=== PATIENT | male | born 1980 | race African-American/Black ===

== ENCOUNTER 2018-01-07 03:27 | Emergency (ER) | payer MEDICARE, MEDICAID ==
[2018-01-07] MEDS ORDERED: ACETAMINOPHEN 325 MG TABLET PO ONE (05:17)
[2018-01-07] MEDS ORDERED: DICYCLOMINE HCL 20 MG TABLET PO ONE (05:17)
[2018-01-07] MEDS ORDERED: ALBUTEROL SULFATE HFA (90 MCG/PUFF) 8 GM MDI (1 MDI/ER DISP) IH ONE (05:18)
[2018-01-07 05:23] LABS: APPEARANCE,URINE SLIGHTLY-CLOUDY; BILIRUBIN,URINE NEGATIVE (NEGATIVE); CALCIUM OXALATE CRYSTALS,URINE RARE /HPF; COLOR,URINE AMBER; GLUCOSE, URINE NEGATIVE (NEGATIVE); KETONES,URINE TRACE mg/dL (NEGATIVE); LEUKOCYTE ESTERASE,URINE NEGATIVE (NEGATIVE); NITRITE,URINE NEGATIVE (NEGATIVE); PROTEIN,URINE 30 mg/dL (NEGATIVE); URINE SPECIFIC GRAVITY 1.029
--- NOTE | 2018-01-07 05:30 | ER Document Report ---
ED General - General Mode of Arrival: Ambulatory Information source: Patient TRAVEL OUTSIDE OF THE [place] IN LAST 30 DAYS: No <STAR WILLIAM - Last Filed: 01/07/18 05:19> <SOUMYA CUELLAR - Last Filed: 01/07/18 06:00> - General Chief Complaint: Abdominal Pain Stated Complaint: ABDOMINAL PAIN Time Seen by Provider: 01/07/18 03:54 Notes: Patient is a 37 year old male that presents to the emergency department today with complaints of "back pain and abdominal pain off and on". Patient states he has also had a slight cough for the last month. Patient mentions that he is hungry. Patient denies dysuria. (STAR WILLIAM) - Related Data Allergies/Adverse Reactions: aripiprazole [From Abilify] Allergy (Verified 08/24/11 22:38) divalproex sodium [From Depakote] Allergy (Verified 08/24/11 22:38) haloperidol [From Haldol] Allergy (Verified 08/24/11 22:38) haloperidol lactate [From Haldol] Allergy (Verified 08/24/11 22:38) lithium [[place]] Allergy (Verified 08/24/11 22:38) olanzapine [From Zyprexa] Allergy (Verified 08/24/11 22:38) risperidone [From Risperdal] Allergy (Verified 08/24/11 22:38) Past Medical History - General Information source: Patient - Social History Smoking Status: Current Every Day Smoker Cigarette use (# per day): Yes Frequency of alcohol use: Occasional Drug Abuse: Cocaine, Marijuana Lives with: Family Family History: Reviewed & Not Pertinent Patient has suicidal ideation: No Patient has homicidal ideation: No Pulmonary Medical History: Reports: Hx Asthma Renal/ Medical History: Denies: Hx Peritoneal Dialysis Surgical Hx: Negative - Immunizations Hx Diphtheria, Pertussis, Tetanus Vaccination: No <STAR WILLIAM - Last Filed: 01/07/18 05:19> Review of Systems - Review of Systems Constitutional: No symptoms reported EENT: No symptoms reported Cardiovascular: No symptoms reported Respiratory: See HPI, Cough Gastrointestinal: See HPI, Abdominal pain Genitourinary: denies: Dysuria Male Genitourinary: No symptoms reported Musculoskeletal: See HPI, Back pain Skin: No symptoms reported Hematologic/Lymphatic: No symptoms reported Neurological/Psychological: No symptoms reported -: Yes All other systems reviewed and negative <STAR WILLIAM - Last Filed: 01/07/18 05:19> Physical Exam - Vital signs Interpretation: Normal - General General appearance: Appears well, Alert - HEENT Head: Normocephalic, Atraumatic Eyes: Normal Pupils: PERRL - Respiratory Respiratory status: No respiratory distress Chest status: Nontender Breath sounds: Nonproductive cough, Wheezing - Expiratory wheeze with cough only Chest palpation: Normal - Cardiovascular Rhythm: Regular Heart sounds: Normal auscultation Murmur: No - Abdominal Inspection: Normal Distension: No distension Bowel sounds: Normal Tenderness: Nontender Organomegaly: No organomegaly - Back Back: Normal, Nontender - Extremities General upper extremity: Normal inspection, Nontender, Normal color, Normal ROM , Normal temperature General lower extremity: Normal inspection, Nontender, Normal color, Normal ROM , Normal temperature, Normal weight bearing. No: Linsey's sign - Neurological Neuro grossly intact: Yes Cognition: Normal Orientation: AAOx4 [place] Coma Scale Eye Opening: Spontaneous [place] Coma Scale Verbal: Oriented [place] Coma Scale Motor: Obeys Commands [place] Coma Scale Total: 15 Speech: Normal Motor strength normal: LUE, RUE, LLE, RLE Sensory: Normal - Psychological Associated symptoms: Normal affect, Normal mood - Skin Skin Temperature: Warm Skin Moisture: Dry Skin Color: Normal <SOUMYA CUELLAR - Last Filed: 01/07/18 06:00> - Vital signs Vitals: Temp Pulse Resp BP Pulse Ox 98.5 F 85 20 121/79 96 01/07/18 03:34 01/07/18 03:34 01/07/18 03:34 01/07/18 03:34 01/07/18 03:34 Course <STAR WILLIAM - Last Filed: 01/07/18 05:19> <SOUMYA CUELLAR - Last Filed: 01/07/18 06:00> - Re-evaluation Re-evalutation: 01/07/18 05:39 Patient is a 37-year-old male who recently moved to the area. He does not have a doctor. He has a history of asthma and has been coughing but does not have an inhaler. Patient only has wheezing when he is coughing. Initially came in for abdominal discomfort but does not have any and states that he is hungry. Patient will be given a box lunch and a consult will be placed for social work to help assess for his needs. He is otherwise stable for discharge. (SOUMYA CUELLAR) - Vital Signs Vital signs: Temp Pulse Resp BP Pulse Ox 98.5 F 85 20 121/79 96 01/07/18 03:34 01/07/18 03:34 01/07/18 03:34 01/07/18 03:34 01/07/18 03:34 - Laboratory Laboratory results interpreted by me: 01/07/18 05:00 Urine Protein 30 H Urine Ketones TRACE H Urine Urobilinogen 4.0 H Discharge <STAR WILLIAM - Last Filed: 01/07/18 05:19> <SOUMYA CUELLAR - Last Filed: 01/07/18 06:00> - Discharge Clinical Impression: Asthma Qualifiers: Asthma severity: mild Asthma persistence: intermittent Asthma complication type : unspecified Qualified Code(s): J45.20 - Mild intermittent asthma, uncomplicated Condition: Stable Disposition: HOME, SELF-CARE Instructions: Asthma ([facility]), Family Physicians / Practices, Stop Smoking ([facility]) Additional Instructions: Please make sure your phone is working so the social work can follow-up with you. Prescriptions: Albuterol Sulfate [Proair HFA Inhalation Aerosol 8.5 gm MDI] 2 puff IH Q4H PRN # 1 mdi PRN Reason: Referrals: [facility] [Provider Group] - Follow up as needed Scribe Attestation: 01/07/18 06:00 I personally performed the services described in the documentation, reviewed and edited the documentation which was dictated to the scribe in my presence, and it accurately records my words and actions. (SOUMYA CUELLAR) Scribe Documentation - Scribe Written by Sandrae:: Agustin Yoo, 01/07/2018 0532 acting as scribe for :: Collin <STAR WILLIAM - Last Filed: 01/07/18 05:19>
[2018-01-07 06:50] VITALS: BP 122/68
== END 2018-01-07 06:50 | disposition home or self-care (01) ==
LOC: ER 03:27
DX: J45.20 Mild intermittent asthma, uncomplicated (principal); M54.9 Dorsalgia, unspecified; R05 Cough; F17.210 Nicotine dependence, cigarettes, uncomplicated; Z88.8 Allergy status to other drugs, medicaments and biological substances
CPT/HCPCS: 99284; 81001; A9270 ×2; J3490

== ENCOUNTER 2018-01-12 06:14 | Emergency (ER) | payer MEDICARE, MEDICAID ==
--- NOTE | 2018-01-12 06:41 | ER Document Report ---
ED Psych Disorder / Suicide <DONN STODDARD - Last Filed: 01/12/18 11:47> - General Mode of Arrival: Ambulatory Information source: Patient TRAVEL OUTSIDE OF THE [place] IN LAST 30 DAYS: No <BRANDI OROZCO - Last Filed: 01/12/18 12:20> - General Chief Complaint: Psych Problem Stated Complaint: PSYCH EVAL Time Seen by Provider: 01/12/18 06:35 Notes: The patient claims to be allergic to Abilify, Depakote, Haldol, Zyprexa, lithium , and Risperdal. He has filled prescriptions several times this past year for Zyprexa, Haldol, and Depakote. There is no way to know if he has an allergy to any of these medications, but at least these 3 we know he has received many times. (ARLYN, DONN) Patient is a 37 year old male who presents to the emergency department for unclear reasons. Patient states he is here to receive blood, pay off his hospital bills, and receive IVs in both his arms. Patient then states he ran out of his sugar pills "Zyprexa" and then states he is allergic to aliens. No further information was obtainable. According to [facility] records, patient has received Haldol tablets and injections, Zyprexa, Cogentin and Depakote within the last few months. (BRANDI OROZCO) - Related Data Allergies/Adverse Reactions: aripiprazole [From Abilify] Allergy (Verified 08/24/11 22:38) divalproex sodium [From Depakote] Allergy (Verified 08/24/11 22:38) haloperidol [From Haldol] Allergy (Verified 08/24/11 22:38) haloperidol lactate [From Haldol] Allergy (Verified 08/24/11 22:38) lithium [[place]] Allergy (Verified 08/24/11 22:38) olanzapine [From Zyprexa] Allergy (Verified 08/24/11 22:38) risperidone [From Risperdal] Allergy (Verified 08/24/11 22:38) Past Medical History - General Information source: Patient, [facility] Records - Social History Smoking Status: Unknown if Ever Smoked Family History: Reviewed & Not Pertinent Pulmonary Medical History: Reports: Hx Asthma - Immunizations Hx Diphtheria, Pertussis, Tetanus Vaccination: No <BRANDI OROZCO - Last Filed: 01/12/18 12:20> Review of Systems - Review of Systems Constitutional: No symptoms reported EENT: No symptoms reported Cardiovascular: No symptoms reported Respiratory: No symptoms reported Gastrointestinal: No symptoms reported Genitourinary: No symptoms reported Male Genitourinary: No symptoms reported Musculoskeletal: No symptoms reported Skin: No symptoms reported Hematologic/Lymphatic: No symptoms reported Neurological/Psychological: See HPI -: Yes All other systems reviewed and negative <BRANDI OROZCO - Last Filed: 01/12/18 12:20> Physical Exam - General General appearance: Appears well, Alert - Eating fruit at bedside, talking. In distress: None - HEENT Head: Normocephalic, Atraumatic Eyes: Normal Conjunctiva: Normal Extraocular movements intact: Yes Pupils: PERRL Neck: Normal - Respiratory Respiratory status: No respiratory distress Chest status: Nontender Breath sounds: Normal Chest palpation: Normal - Cardiovascular Rhythm: Regular Heart sounds: Normal auscultation Murmur: No Friction rub: No Gallop: None auscultated - Abdominal Inspection: Normal - Extremities General upper extremity: Normal ROM General lower extremity: Normal ROM - Neurological Neuro grossly intact: Yes Cognition: Normal Orientation: AAOx4 [place] Coma Scale Eye Opening: Spontaneous [place] Coma Scale Verbal: Oriented [place] Coma Scale Motor: Obeys Commands [place] Coma Scale Total: 15 Speech: Normal - Psychological Associated symptoms: Flight of ideas - Skin Skin Temperature: Warm Skin Moisture: Dry Skin Color: Normal <BRANDI OROZCO - Last Filed: 01/12/18 12:20> - Vital signs Vitals: Temp Pulse Resp BP Pulse Ox 98.5 F 85 18 147/72 H 100 01/12/18 06:40 01/12/18 06:40 01/12/18 06:40 01/12/18 06:40 01/12/18 06:40 Course - Laboratory Result Diagrams: 01/12/18 07:30 01/12/18 07:30 - EKG Interpretation by Ri EKG shows normal: Sinus rhythm, [place], Intervals, QRS Complexes, ST-T Waves Rate: Normal - 90 Rhythm: NSR [place]/QRS: Right axis deviation <DONN STODDARD - Last Filed: 01/12/18 11:47> - Laboratory Result Diagrams: 01/12/18 07:30 01/12/18 07:30 <BRANDI OROZCO - Last Filed: 01/12/18 12:20> - Re-evaluation Re-evalutation: 01/12/18 07:07 Patient's behavior is consistent with acute psychosis and manic type behavior, most likely not taking his medications. When he was offered oral medication, he spit the medicine out and became more verbally abusive. He will be placed in four-point locking hard restraints for his protection and the staff protection. We will administer medication intramuscularly. (DONN STODDARD) - Vital Signs Vital signs: Temp Pulse Resp BP Pulse Ox 98.5 F 85 18 147/72 H 100 01/12/18 06:40 01/12/18 06:40 01/12/18 06:40 01/12/18 06:40 01/12/18 06:40 - Laboratory Laboratory results interpreted by me: 01/12/18 01/12/18 07:30 07:30 WBC 11.5 H Sodium 145.5 H Salicylates < 1.0 L Acetaminophen < 10 L Valproic Acid < 10.0 L Discharge <DONN STODDARD - Last Filed: 01/12/18 11:47> <BRANDI OROZCO - Last Filed: 01/12/18 12:20> - Discharge Clinical Impression: Schizoaffective disorder, bipolar type with good prognostic features, Cocaine abuse Condition: Stable Disposition: PSYCH HOSP/UNIT Scribe Attestation: 01/12/18 08:41 I personally performed the services described in the documentation, reviewed and edited the documentation which was dictated to the scribe in my presence, and it accurately records my words and actions. (DONN STODDARD) Scribe Documentation - Scribe Written by Agustin:: Agustin Dixon, 01/12/2018 06:51 acting as scribe for :: Arlyn <BRANDI OROZCO - Last Filed: 01/12/18 12:20>
[2018-01-12] MEDS ORDERED: HALOPERIDOL 5 MG TABLET PO ONE (06:44)
[2018-01-12] MEDS ORDERED: OLANZAPINE 5 MG TAB.RAPDIS PO ONE (06:45)
[2018-01-12] MEDS ORDERED: BENZTROPINE MESYLATE 1 MG TABLET PO ONE (06:46)
[2018-01-12] MEDS ORDERED: DIPHENHYDRAMINE HCL 50 MG/ML VIAL IM ONE (07:08)
[2018-01-12] MEDS ORDERED: OLANZAPINE INJ/PF 10 MG SDV IM ONE (07:09)
[2018-01-12 07:53] LABS: ABSOLUTE BASOPHILS # (AUTO) 0.1 10^3/uL (0.0-0.2); ABSOLUTE EOSINOPHILS # (AUTO) 0.1 10^3/uL (0.0-0.6); ABSOLUTE LYMPHOCYTES (AUTO) 2.9 10^3/uL (0.5-4.7); ABSOLUTE MONOCYTES (AUTO) 0.8 10^3/uL (0.1-1.4); ABSOLUTE NEUT (AUTO) 7.6 10^3/uL (1.7-8.2); BASOPHILS % (AUTO) 0.5 % (0-2); EOSINOPHILS % (AUTO) 0.9 % (0-6); HEMATOCRIT 42.7 % (37.9-51.0); HEMOGLOBIN 14.1 g/dL (13.5-17.0); MEAN CORPUSCULAR HEMOGLOBIN 28.5 pg (27.0-33.4); MEAN CORPUSCULAR VOLUME 87 fl (80-97); MONOCYTES % (AUTO) 7.2 % (3-13); PLATELET COUNT 202 10^3/uL (150-450); RED BLOOD COUNT 4.94 10^6/uL (4.35-5.55); RED CELL DISTRIBUTION WIDTH 13.3 % (11.5-14.0); SEGMENTED NEUTROPHILS % (AUTO) 66.4 % (42-78); TOTAL CELLS COUNTED % (AUTO) 100 %; WHITE BLOOD COUNT 11.5 10^3/uL (4.0-10.5)
[2018-01-12 08:13] LABS: ALANINE AMINOTRANSFERASE 55 U/L (21-72); ALBUMIN 4.5 g/dL (3.5-5.0); ALKALINE PHOSPHATASE 87 U/L (38-126); ANION GAP 13 (5-19); ASPARTATE AMINO TRANSFERASE 52 U/L (17-59); BILIRUBIN,DIRECT 0.3 mg/dL (0.0-0.4); BILIRUBIN,TOTAL 0.6 mg/dL (0.2-1.3); BLOOD UREA NITROGEN 18 mg/dL (7-20); CALCIUM 9.6 mg/dL (8.4-10.2); CARBON DIOXIDE 29 mmol/L (22-30); CHLORIDE 104 mmol/L (98-107); GLUCOSE 103 mg/dL (75-110); SODIUM 145.5 mmol/L (137-145); TOTAL PROTEIN 7.8 g/dL (6.3-8.2)
[2018-01-12 08:19] LABS: ACETAMINOPHEN < 10 ug/mL (10-30); ALCOHOL < 10 mg/dL (NONE DETECTED); SALICYLATE < 1.0 mg/dL (2.0-20.0)
[2018-01-12 09:23] LABS: APPEARANCE,URINE CLEAR; BILIRUBIN,URINE NEGATIVE (NEGATIVE); COLOR,URINE COLORLESS; GLUCOSE, URINE NEGATIVE (NEGATIVE); KETONES,URINE NEGATIVE (NEGATIVE); LEUKOCYTE ESTERASE,URINE NEGATIVE (NEGATIVE); NITRITE,URINE NEGATIVE (NEGATIVE); PROTEIN,URINE NEGATIVE (NEGATIVE); URINE SPECIFIC GRAVITY 1.003; UROBILINOGEN,URINE NEGATIVE mg/dL (<2.0)
[2018-01-12 09:52] LABS: URINE AMPHETAMINES SCREEN NEGATIVE; URINE BARBITURATES SCREEN NEGATIVE; URINE BENZODIAZEPINES SCREEN NEGATIVE; URINE COCAINE SCREEN UNCONFIRMED POSITIVE; URINE MARIJUANA (THC) SCREEN UNCONFIRMED POSITIVE; URINE METHADONE SCREEN NEGATIVE; URINE PHENCYCLIDINE SCREEN NEGATIVE
--- NOTE | 2018-01-12 11:22 | PSYCHOLOGICAL NOTE ---
Psych Note - Psych Note Psych Note: Reason for Consult: odd behavior Consent permissions: Patient's sister, Maren [phone] Patient is a 37 year old male who presents to the emergency department for unclear reasons. Patient states he is here to receive blood, pay off his hospital bills, and receive IVs in both his arms. Patient then states he ran out of his sugar pills "Zyprexa" and then states he is allergic to aliens. Patient is observed in 4 point restraints with a spit mask on. Attending nurse noted that the patient threatening staff and has been extremely aggressive. the patient spit out po meds and spit at rn. Patient reports he came in for help and did not "come in for this." He discloses that he came in to get some vials of blood taken for his blood type and some other stuff. He reports that he he is being harassed and will be suing. When asked about spitting he states that he was "spitting plastic in the sink." He denies spitting at any individual. Patient is extremely agitated with irritable mood. Patient refused to further engage with clinician closes eyes and recipient refused to speak. Clinician spoke with patient's sister, Maren, who disclosed the patient is diagnosed with schizoaffective disorder bipolar type and antisocial personality disorder. She discloses that she just moved to the patient to the local area 1 month ago she is his caregiver. She reports that about 6 days ago she ran out of the medications and he is overdue for his Haldol Decanoate shot. She states that she is already transferred all of her Medicaid/Medicare over to [place] and received his cards 2 days ago. She states that she has been making appointments for him to go to all of his doctors. She continues state that the patient may try to say he cannot have Haldol but that he is supposed to have it monthly in addition to his regular medications that he takes daily. She confirms that she will be coming to [facility] to ensure the patient is at baseline. She discloses the patient will do much better in her care and as long as he receives medications and prescriptions so she can continue getting him appointments she would like to bring him home. Behavior health team contacted patient's pharmacy. They report the patient has an ACTteam and listed allergies are only Seroquel and Thorazine. Patient receives Haldol decanoate 100 mg monthly in addition to zyprexa zydis 20mg daily. Medication recommendations per [facility]'s contracted psychiatrist Dr. Missy TOPETE are as follows 1. Thorazine 50 mg every 8 hours 2. Cogentin 1 mg daily UPDATED Medications recommendations due to finding out allergy to Thorazine: restart home medications to include Haldol decanoate 100 mg Diagnosis: 295.70 (F25.0) schizoaffective disorder; bipolar type per history provided by patient's sister 301.7 (F60.2) antisocial personality disorder per history provided by patient's sister Impression/ plan: Patient is recommended for IVC. Patient is either unable or unwilling to engage in evaluation. Patient is demonstrating hypomanic behavior with irritability and aggression. Patient has made some odd comments that appear to indicate the patient is suffering from paranoid delusions. Medication recommendations have been provided. Patient's sister discloses that she is going to be visiting later today and reports the patient does better with her and feels that if patient is at baseline she would rather patient accompany her home. Dr. Townsend was consulted and the care and management this patient; attending physician is in agreement with recommendations and disposition.
[2018-01-12] MEDS: CHLORPROMAZINE HCL INJ 25 MG/1 ML AMPULE IM SCH ×2 (14:15→22:43)
[2018-01-12] MEDS ORDERED: HALOPERIDOL DECANOATE INJ 100 MG/1 ML VIAL IM ONE (17:42)
[2018-01-13] MEDS: CHLORPROMAZINE HCL INJ 25 MG/1 ML AMPULE IM SCH (08:39)
[2018-01-13 09:14] VITALS: BP 133/65
--- NOTE | 2018-01-13 09:14 | EKG REPORT ---
SEVERITY:- OTHERWISE NORMAL ECG - SINUS RHYTHM RIGHT AXIS DEVIATION : Confirmed by: Whitney Collier 13-Jan-2018 09:13:35
[2018-01-13] MEDS ORDERED: BENZTROPINE MESYLATE 1 MG TABLET PO SCH (10:00)
[2018-01-13] MEDS ORDERED: OLANZAPINE 5 MG TAB.RAPDIS PO ONE (10:28)
--- NOTE | 2018-01-13 10:58 | ER Document Report ---
Doctor's Note Notes: 01/13/18 10:55 Patient resting comfortably on stretcher, no complaints today, states he is ready to go home, sister is here and states he is at his baseline mental status and she is ready to take him home, reports that she works in mental health field and therefore has plenty of resources to get patient outpatient help, requesting prescription for Zyprexa Zydis, this prescription will be given as well as list of resources to follow-up with, patient and sister advised to return at any time should any additional concerns develop, patient sister in agreement with this plan Discharge - Discharge Clinical Impression: Schizoaffective disorder, bipolar type with good prognostic features, Cocaine abuse Condition: Stable Disposition: HOME, SELF-CARE Additional Instructions: You have been evaluated by both medical and behavioral health teams and have been deemed appropriate for discharge. Is recommended you follow-up with outpatient mental health services as previously planned. You have been provided a prescription for Zyprexa Zydis 10 mg twice daily please take as directed. You also received a Haldol Decanoate 100 mg during this visit; Please inform your outpatient provider of this information. AT ANY TIME, IF YOUR SYMPTOMS CHANGE SIGNIFICANTLY OR WORSEN OR YOU DEVELOP NEW SYMPTOMS, RETURN TO THE EMERGENCY DEPARTMENT IMMEDIATELY FOR RE-EVALUATION. Prescriptions: Olanzapine [Zyprexa Zydis] 10 mg PO BID #[id number] tab.rapdis Referrals: [facility] [Outside] - Follow up in 3-5 days Scribe Attestation: 01/12/18 08:41 I personally performed the services described in the documentation, reviewed and edited the documentation which was dictated to the scribe in my presence, and it accurately records my words and actions.
== END 2018-01-13 11:12 | disposition home or self-care (01) ==
LOC: ER 06:14
DX: F25.0 Schizoaffective disorder, bipolar type (principal); F14.10 Cocaine abuse, uncomplicated; J45.909 Unspecified asthma, uncomplicated; Z78.1 Physical restraint status
CPT/HCPCS: 93005; 99285; 96372; 36415; 80307 ×4; 85025; 80053; 81001; 80164; 93010; J1631; A9270; J3490